=== PATIENT | female | born 1950 | race Asian ===

== ENCOUNTER → 2017-12-29 07:26 | Outpatient (CLI) | payer MEDICARE, OTHER, SELFPAY ==
--- NOTE | 2017-12-29 | DI.MG.S_ITS ---
BILATERAL DIGITAL SCREENING MAMMOGRAM 3D/2D WITH CAD: 12/29/2017 CLINICAL: Routine screening. Comparison is made to exams dated: 12/12/2016 mammogram, 12/10/2015 mammogram, and 12/11/2014 mammogram - [facility]. The tissue of both breasts is extremely dense, which lowers the sensitivity of mammography. Current study was also evaluated with a Computer Aided Detection (CAD) system. No significant masses, calcifications, or other findings are seen in either breast. There has been no significant interval change. IMPRESSION: NEGATIVE There is no mammographic evidence of malignancy. A 1 year screening mammogram is recommended. This exam was interpreted at Station ID: [id number]. NOTE: For mammograms, a report in lay terms will be sent to the patient. Approximately 15% of breast malignancies will not be visualized mammographically. In the management of a palpable breast mass, a negative mammogram must not discourage biopsy of a clinically suspicious lesion. Electronically Signed By: Isaiah ellis/lashae:12/29/2017 12:37:41 letter sent: Normal Exam ACR BI-RADS Category 1: Negative 3341F
== END ==
PROVIDERS: PCP Internal Medicine; Visit Provider Internal Medicine
DX: Z12.31 Encounter for screening mammogram for malignant neoplasm of breast (principal)
CPT/HCPCS: 77063; 77067

== ENCOUNTER → 2019-03-01 09:27 | Outpatient (CLI) | payer MEDICARE, OTHER, SELFPAY ==
--- NOTE | 2019-03-01 | DI.CT.S_ITS ---
PROCEDURE: CT CHEST WO CON INDICATIONS: ATELECTASIS OF RIGHT LUNG TECHNIQUE: Noncontrast 5 mm thick sections acquired from the pulmonary apices to the posterior costophrenic angles. 1 mm lung window, 5 mm thick coronal and sagittal and 7 mm axial MIP reformats were then acquired. For radiation dose reduction, the following was used: automated exposure control, adjustment of mA and/or kV according to patient size. COMPARISON: [facility], , CT THORAX W/O CONTRAST, 08/29/2018, 9:44. (Images only, no reported FINDINGS: Image quality: Excellent. Lungs and pleura: There is a mild area of poorly defined consolidation seen involving the anterior aspect of the right lower lobe inferiorly. This measures 5.2 x 1.5 cm in greatest axial dimensions. This is slightly increased in size compared to the outside 08/29/18 CT examination, when it measures 4.7 x 1.4 cm in greatest axial dimensions, measured in a similar fashion. Minimal streaky presumed atelectasis can be seen involving the anterior left lower lobe. The lungs otherwise appear clear. No pleural effusions or pneumothorax. Central and peripheral airways are patent and normal in caliber. Mediastinum: Heart size is normal. Coronary artery calcifications are seen. No pericardial effusion. No mediastinal adenopathy by size criteria. Thoracic aorta and central pulmonary arteries are normal in size. Esophagus is normal in caliber. No hiatal hernia. Bones and chest wall: No suspicious bony lesions. No vertebral body compression fractures. No axillary or supraclavicular adenopathy by size criteria. Thyroid gland demonstrates no significant noncontrast abnormality. Abdomen: Visualized upper abdominal solid organs and bowel loops appear normal in the absence of contrast. IMPRESSION: There is consolidation seen involving the right lower lobe anteriorly, which is slightly increased in size compared to the prior examination. While this may represent atelectasis or scarring, differential diagnosis for this abnormality also includes neoplasm. If clinically appropriate, please consider a dedicated PET/CT for further evaluation. Presumed mild atelectasis involving the left lower lobe anteriorly. Incidental note is made of: Coronary artery calcification Dictated by: Kavin Almazan M.D. on 03/01/2019 at 9:39 Approved by: Kavin Almazan M.D. on 03/01/2019 at 9:44
== END ==
PROVIDERS: Visit Provider Specialist
DX: J98.11 Atelectasis (principal); I25.10 Atherosclerotic heart disease of native coronary artery without angina pectoris
CPT/HCPCS: 71250

== ENCOUNTER → 2019-12-12 12:21 | Outpatient (CLI) | payer MEDICARE, OTHER, SELFPAY ==
--- NOTE | 2019-12-12 | DI.CT.S_ITS ---
PROCEDURE: CT CHEST WO CON INDICATIONS: Solitary pulmonary nodule TECHNIQUE: Noncontrast 5 mm thick sections acquired from the pulmonary apices to the posterior costophrenic angles. 1 mm lung window, 5 mm thick coronal and sagittal and 7 mm axial MIP reformats were then acquired. For radiation dose reduction, the following was used: automated exposure control, adjustment of mA and/or kV according to patient size. COMPARISON: [facility], RG, CT THORAX W/O CONTRAST, 08/29/2018, 9:44. [facility], CT, CT CHEST WO CON, 03/01/2019, 10:00. FINDINGS: Image quality: Excellent. Lungs and pleura: Redemonstrated focal consolidation with air bronchograms present within the right fissure and anterior right lower lobe, measuring 5.0 x 1.9 cm, previously 5.2 x 1.5 cm, stable to minimally increased. Airway thickening in keeping with nonspecific bronchitis and/or reactive airways disease. No pleural effusions or pneumothorax. Central and peripheral airways are patent and normal in caliber. Mediastinum: Heart size is normal. Coronary artery calcifications are present. No pericardial effusion. No mediastinal adenopathy by size criteria. Thoracic aorta and central pulmonary arteries are normal in size. Esophagus is normal in caliber. No hiatal hernia. Bones and chest wall: No suspicious bony lesions. No vertebral body compression fractures. No axillary or supraclavicular adenopathy by size criteria. Thyroid gland unremarkable. Abdomen: Visualized upper abdominal solid organs and bowel loops appear normal in the absence of contrast. IMPRESSION: Minimal to no interval change of redemonstrated anterior right lower lobe consolidation, probable atelectasis and scarring. If there is persistent clinical concern for indolent neoplasm, consider further evaluation with PET/CT, or continued surveillance with one-year interval chest CT Coronary artery disease Dictated by: Isaías Rodriguez M.D. on 12/12/2019 at 14:43 Approved by: Isaías Rodriguez M.D. on 12/12/2019 at 14:59
== END ==
PROVIDERS: PCP Internal Medicine; Referring Provider Internal Medicine; Visit Provider Internal Medicine
DX: R91.1 Solitary pulmonary nodule (principal); I25.10 Atherosclerotic heart disease of native coronary artery without angina pectoris
CPT/HCPCS: 71250

== ENCOUNTER → 2020-01-27 10:49 | Outpatient (CLI) | payer MEDICARE, OTHER, SELFPAY ==
--- NOTE | 2020-01-27 | DI.MG.S_ITS ---
BILATERAL DIGITAL SCREENING MAMMOGRAM 3D/2D WITH CAD: 01/27/2020 CLINICAL: Routine screening. Comparison is made to exams dated: 01/03/2019 mammogram - [facility], 12/29/2017 mammogram - [facility], 12/12/2016 mammogram, 12/10/2015 mammogram, 12/11/2014 mammogram, and 12/12/2013 mammogram - [facility]. The tissue of both breasts is extremely dense, which lowers the sensitivity of mammography. Current study was also evaluated with a Computer Aided Detection (CAD) system. No significant masses, calcifications, or other findings are seen in either breast. There has been no significant interval change. IMPRESSION: NEGATIVE There is no mammographic evidence of malignancy. A 1 year screening mammogram is recommended. This exam was interpreted at Station ID: [id number]. NOTE: For mammograms, a report in lay terms will be sent to the patient. Approximately 15% of breast malignancies will not be visualized mammographically. In the management of a palpable breast mass, a negative mammogram must not discourage biopsy of a clinically suspicious lesion. Electronically Signed By: Parviz jeffrey/lashae:01/27/2020 11:19:42 letter sent: Normal Exam ACR BI-RADS Category 1: Negative 3341F
== END ==
PROVIDERS: PCP Internal Medicine; Referring Provider Internal Medicine; Visit Provider Internal Medicine
DX: Z12.31 Encounter for screening mammogram for malignant neoplasm of breast (principal)
CPT/HCPCS: 77063; 77067

== ENCOUNTER → 2021-01-29 09:52 | Outpatient (CLI) | payer MEDICARE, OTHER, SELFPAY ==
--- NOTE | 2021-01-29 | DI.MG.S_ITS ---
BILATERAL DIGITAL SCREENING MAMMOGRAM 3D/2D WITH CAD: 01/29/2021 CLINICAL: Routine screening. Comparison is made to exams dated: 01/27/2020 mammogram - [facility], 01/03/2019 mammogram - [facility], and 12/29/2017 mammogram - [facility]. The tissue of both breasts is extremely dense, which lowers the sensitivity of mammography. Current study was also evaluated with a Computer Aided Detection (CAD) system. No significant masses, calcifications, or other findings are seen in either breast. There has been no significant interval change. IMPRESSION: NEGATIVE There is no mammographic evidence of malignancy. A 1 year screening mammogram is recommended. This exam was interpreted at Station ID: [id number]. NOTE: For mammograms, a report in lay terms will be sent to the patient. Approximately 15% of breast malignancies will not be visualized mammographically. In the management of a palpable breast mass, a negative mammogram must not discourage biopsy of a clinically suspicious lesion. Electronically Signed By: Bhavik carranza/lashae:01/29/2021 11:54:33 letter sent: Normal Exam ACR BI-RADS Category 1: Negative 3341F
== END ==
PROVIDERS: PCP Internal Medicine; Referring Provider Internal Medicine; Visit Provider Internal Medicine
DX: Z12.31 Encounter for screening mammogram for malignant neoplasm of breast (principal)
CPT/HCPCS: 77063; 77067

== ENCOUNTER 2022-11-23 11:00 | Day surgery (SDC) | payer MEDICARE, OTHER, SELFPAY ==
[2022-11-23 11:52] VITALS: BP 140/79; PULSE 71; RESP 16; TEMP 36.6; O2SAT 99; BMI 24.7
[2022-11-23] MEDS: LACTATED RINGERS 1,000 ML 42 ML IV (12:07)
--- NOTE | 2022-11-23 12:43 | P.HP_ITS ---
History of Present Illness History of Present Illness Chief complaint: Dx Colonoscopy Narrative: History of colon polyps [facility] Medical History (Updated 11/22/22 @ 14:14 by Junie Kaur RN) Diabetes Hypertension Hypothyroid Social History household members: spouse Smoking Status: Never smoker alcohol intake: never Meds Home Medications and Allergies Home Medications Medication Instructions Recorded Confirmed Type aspirin 81 mg tablet 81 mg PO DAILY 11/23/22 11/23/22 History atorvastatin 40 mg tablet 40 mg PO BEDTIME 11/23/22 11/23/22 History ezetimibe 10 mg tablet 10 mg PO DAILY 11/23/22 11/23/22 History ketoconazole 2 % topical cream 1 applic topical BID 11/23/22 11/23/22 History levothyroxine 88 mcg tablet 88 mcg PO DAILY 11/23/22 11/23/22 History lidocaine 5 % topical cream 1 applic topical BID PRN rash 11/23/22 11/23/22 History losartan 25 mg tablet 25 mg PO DAILY 11/23/22 11/23/22 History sitagliptin phosphate 50 1 tab PO BID 11/23/22 11/23/22 History mg-metformin 1,000 mg tablet (Cristoferumesophie) Allergies Allergy/AdvReac Type Severity Reaction Status Date / Time adhesive tape Allergy Verified 11/23/22 11:45 Exam Vital Signs (past 8 hours): - 11/23/22 11:52 Temperature 98 F Pulse Rate 71 Respiratory Rate 16 Blood Pressure 140/79 Pulse Oximetry 99 Oxygen Delivery Method Room Air Oxygen Delivery Method Room Air Narrative Exam Narrative: Oropharynx free of lesions Chest clear to auscultation percussion Cardiac exam reveals no S3 or murmur Assessment & Plan Assessment & Plan narrative: History of colon polyps need for follow-up colonoscopy. Risks, benefits, alternatives have been explained.
--- NOTE | 2022-11-23 12:44 | PM.OP.COLON ---
Operative Date/Time/Diagnoses Date of procedure: 11/23/22 Pre-op diagnosis: See indication and findings Procedure & Clinicians Study performed: Colonoscopy Indications: History of polyps Surgeon: Naina Pearl Procedure Notes Procedure in detail: After informed consent was obtained the patient was placed in left lateral decubitus position. The video colonoscope was placed in the rectum slowly advanced to the cecum. Preparation was good. On slow withdrawal mucosa was carefully examined. The scope was removed. The patient tolerated procedure well. Blood loss none Complications none Sedation mac Findings 1. Normal colonoscopy to cecum Patient should have follow-up colonoscopy in 7 years.
[2022-11-23 13:42] VITALS: BP 105/65; BP 113/64; PULSE 55; PULSE 59; RESP 13; RESP 20; TEMP 36.1; O2SAT 94; O2SAT 97
[2022-11-23 13:47] VITALS: BP 118/72; PULSE 59; RESP 16; O2SAT 98
[2022-11-23 13:54] VITALS: BP 92/69; PULSE 54; RESP 17; TEMP 36.7; O2SAT 98
[2022-11-23 13:57] VITALS: BP 136/63; PULSE 57; RESP 16; TEMP 36.8; O2SAT 99
== END 2022-11-23 13:45 | disposition home or self-care (01) ==
PROVIDERS: PCP Physician Assistant; Referring Provider Internal Medicine Gastroenterology; Visit Provider Internal Medicine Gastroenterology
PROC: 0DJD8ZZ Inspection of Lower Intestinal Tract, Via Natural or Artificial Opening Endoscopic (ICD-10-PCS; CPT 45378; principal; 2022-11-23 13:30)
DX: Z12.11 Encounter for screening for malignant neoplasm of colon (principal); Z86.010 Personal history of colon polyps
CPT/HCPCS: G0105; J2704

== ENCOUNTER → 2023-03-29 09:56 | Outpatient (CLI) | payer MEDICARE, OTHER, SELFPAY ==
--- NOTE | 2023-03-29 | DI.RAD.S_ITS ---
Bone Density Report Name: GRACIELA SILVER Age: 72 Sex: Female Ethnicity: Date of : 1950 Indication: postmenopausal; screening for osteoporosis; Referring Provider: BROCKWAY. CUNNINGHAM Study: Bone densitometry was performed. Exam Date: March 29, 2023 Accession number: [id number] Bone Density: Region BMD T-score Z-score Classification AP Spine(L1, L2, L3) 1.231 1.9 4.1 Normal Femoral Neck (Left) 0.759 -0.8 1.1 Normal Total Hip (Left) 0.976 0.3 1.9 Normal Femoral Neck (Right) 0.771 -0.7 1.2 Normal Total Hip (Right) 0.988 0.4 2.0 Normal Total Hip Mean 0.982 0.4 2.0 Normal World Health Organization criteria for BMD impression classify patients as: Normal (T-score at or above -1.0), Osteopenia (T-score between -1.0 and -2.5), or Osteoporosis (T-score at or below -2.5). 10-year Fracture Risk: FRAX not reported because: All T-scores for Spine Total, Hip Total, Femoral Neck at or above -1.0 Previous Exams: -- Region Exam Age BMD T-score BMD Change BMD Change Date g/cm2 vs Baseline vs Previous -- AP Spine (L1-L3) 03/29/2023 72 1.231 1.9 -0.028 (-2.2%)# -0.028 (-2.2%)# 09/27/2016 66 1.259 2.2 Total Hip(Left) 03/29/2023 72 0.976 0.3 -0.027 (-2.7%)# -0.027 (-2.7%)# 09/27/2016 66 1.004 0.5 Total Hip(Right) 03/29/2023 72 0.988 0.4 -0.001 (-0.1%)# -0.001 (-0.1%)# 09/27/2016 66 0.989 0.4 -- *Denotes significance at 95% confidence level, LSC for AP Spine = 0.022 g/cm2, LSC for Total Hip = 0.027 g/cm2 # Denotes dissimilar scan types or analysis methods Impression: The patient has normal bone mass. No significant bone loss was observed. Discussion: BONE DENSITY IS ABOVE THE MINIMUM DESIRABLE LEVEL AT ALL SKELETAL SITES TESTED. This patient's bone mineral density is above the minimum desirable level (T-score -1.0 or better) at all sites measured. The patient should follow a healthful lifestyle (good nutrition with adequate calcium and vitamin D, and appropriate weight-bearing exercise). Follow-Up: Consider repeating this study in 5 years or sooner if there is some new clinical indication. Reported by: SHANICE HAIRSTON M.D on 03/29/2023 10:22:00 AM.
== END ==
PROVIDERS: PCP Physician Assistant; Referring Provider Nurse Practitioner Family; Visit Provider Nurse Practitioner Family
DX: Z78.0 Asymptomatic menopausal state (principal)
CPT/HCPCS: 77080

== ENCOUNTER 2024-10-10 08:56 | Emergency (ER) | payer MEDICARE, OTHER, SELFPAY ==
[2024-10-10] VITALS (7 sets, daily range): BP systolic 113–171; BP diastolic 58–77; PULSE 66–73; RESP 13–25; TEMP 36.1; O2SAT 96–99; BMI 24.5
--- NOTE | 2024-10-10 09:06 | DI.RAD.S_ITS ---
PROCEDURE: XR CHEST 1V INDICATIONS: chest pain TECHNIQUE: One view of the chest was acquired. COMPARISON: None. FINDINGS AND IMPRESSION: Right lower lung consolidation, suspicious for atelectasis versus infectious airspace disease. Consider future imaging surveillance to assess for resolution. Normal heart size. No pleural effusions. Degenerative osseous changes. Age-indeterminate widening of the left AC interval. Dictated by: Aniceto Macdonald M.D. on 10/10/2024 at 9:43 Approved by: Aniceto Macdonald M.D. on 10/10/2024 at 9:44
--- NOTE | 2024-10-10 09:06 | EKG_ITS ---
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
--- NOTE | 2024-10-10 09:12 | ED.CHESTPAIN ---
HPI - Chest Pain General Chief Complaint: Chest Pain Stated Complaint: Feeling different , Chest bone pain Time Seen by Provider: 10/10/24 09:12 Source: patient Mode of arrival: Ambulatory Limitations: no limitations History of Present Illness HPI narrative: 74-year-old female with a past medical history of hyperlipidemia, hypothyroidism, hypertension, presenting from home for evaluation of left-sided chest pain ongoing intermittent for the past 1 week. Patient denies any radiation of the symptoms, denies anything making it better or worse. She denies any other symptoms such as headache visual disturbances shortness breath fever chills nausea vomiting abdominal pain or any other GI/ symptoms time. Related Data Home Medications Medication Instructions Recorded Confirmed aspirin 81 mg tablet 81 mg PO DAILY 11/23/22 11/23/22 atorvastatin 40 mg tablet 40 mg PO BEDTIME 11/23/22 11/23/22 ezetimibe 10 mg tablet 10 mg PO DAILY 11/23/22 11/23/22 ketoconazole 2 % topical cream 1 applic topical BID 11/23/22 11/23/22 levothyroxine 88 mcg tablet 88 mcg PO DAILY 11/23/22 11/23/22 lidocaine 5 % topical cream 1 applic topical BID PRN rash 11/23/22 11/23/22 losartan 25 mg tablet 25 mg PO DAILY 11/23/22 11/23/22 sitagliptin phosphate 50 1 tab PO BID 11/23/22 11/23/22 mg-metformin 1,000 mg tablet (Cristoferumet) Previous Rx's Medication Instructions Recorded doxycycline hyclate 100 mg capsule 100 mg PO BID 5 days #10 caps 10/10/24 Allergies Allergy/AdvReac Type Severity Reaction Status Date / Time adhesive tape Allergy Verified 11/23/22 11:45 Review of Systems Review of Systems Narrative: General: Denies fever, chills, weight loss HEENT: Denies headache, eye drainage, eye irritation, head trauma, sore throat, voice change Cardiovascular: Positive chest pain, denies palpitations, tachycardia Respiratory: Denies any shortness of breath, cough, wheeze, stridor GI/: Denies any abdominal pain, nausea, vomiting, diarrhea, bright red blood per rectum, melanotic stools, urinary frequency, urinary retention, dysuria, hematuria MSK: Denies any joint pain, muscle pains, swelling Skin: Denies any rashes, lesions, discoloration Neuro: Denies any headache, lightheadedness, dizziness, fainting, weakness Psych: Denies SI/HI Patient History Medical History (Updated 10/10/24 @ 10:24 by Jimmy Araujo DO) Hypothyroid Diabetes Hypertension Social History household members: spouse Smoking Status: Unknown if ever smoked alcohol intake: never Smoking Status: Unknown if ever smoked Exam Narrative Exam Narrative: General: Cooperative, well-developed, not in acute distress HEENT: Normocephalic, atraumatic, PERRLA, normal sclera, eyelids normal Neck: Active full range of motion, atraumatic Chest: Normal to inspection, negative crepitus, no overlying erythema ecchymosis Respiratory: Normal respiratory effort, not in acute respiratory distress, clear to auscultation bilaterally negative cough, wheeze, tachypnea, rhonchi, rales Cardiology: Regular rate rhythm negative gallop, murmur, rubs GI/: No tenderness to palpation, soft, non rigid, normal to inspection, exam deferred MSK: Full active range of motion in all 4 extremities, atraumatic, no tenderness to palpation of any bony prominences Skin: No rashes or lesions noted Neuro: Alert awake oriented x3, moves all 4 extremities spontaneously, cranial nerves intact, able to answer all questions appropriately follows commands appropriately Psych: Cooperative, negative suicidal or homicidal ideations Initial Vital Signs Initial Vital Signs: Vital Signs Temperature 97.0 F L 10/10/24 09:03 Pulse Rate 73 10/10/24 09:03 Respiratory Rate 13 10/10/24 09:03 Blood Pressure 171/77 H 10/10/24 09:03 Pulse Oximetry 98 10/10/24 09:03 Oxygen Delivery Method Room Air 10/10/24 09:03 Course Orders Ordered: ED Orders 10/10/24 09:06 XR chest 1V Stat EKG-12 Lead Stat 10/10/24 09:12 Complete Blood Count AUTO DIFF Stat Comprehensive Metabolic Panel Stat Lipase Stat Magnesium Stat NT-proBNP (BNP-Adult 18+) Stat PTT Partial Thromboplastin Felipe Stat Prothrombin Time INR Stat Troponin & CK Cardiac Panel Stat Discontinued Medications Aspirin (Aspirin 81 Mg Chew Tab) 324 mg PO NOW ONE Stop: 10/10/24 09:07 Last Admin: 10/10/24 09:15 Dose: 324 mg Documented By: SABRINA Vital Signs Vital signs: Vital Signs - 8 hr 04/17/25 09:03 10/10/24 09:15 10/10/24 09:25 Temperature 97.0 F L Pulse Rate 73 71 70 Respiratory Rate 13 16 25 H Blood Pressure 171/77 H Pulse Oximetry 98 99 98 Oxygen Delivery Method Room Air 10/10/24 09:25 10/10/24 09:30 10/10/24 09:30 Temperature Pulse Rate 66 Respiratory Rate 21 Blood Pressure 137/74 118/61 Pulse Oximetry 96 Oxygen Delivery Method MDM - Chest Pain Differential Diagnosis Differential diagnosis: Likely pneumothorax, atypical chest pain, st elevation myocardial infarction, costochondritis, chest pain and other (Pneumonia, ACS, electrolyte abnormality) Lab Data 10/10/24 09:12 10/10/24 09:12 Labs: Lab Results 10/10/24 Range/Units 09:12 WBC 6.0 (4.5-11.0) X10^3/uL RBC 4.72 (4.0-5.2) X10^6/uL Hgb 12.6 (12.0-16.0) g/dL Hct 38.1 (36-46) % MCV 80.7 (80-100) fL MCH 26.8 (26-34) PG MCHC 33.2 (30-36) % RDW 13.5 (11.6-14.8) % Plt Count 371 (150-400) X10^3/uL Neut % (Auto) 55.3 (50-75) % Lymph % (Auto) 34.4 (25-40) % Sargent % (Auto) 6.4 (3-14) % Eos % (Auto) 3.0 (2-4) % Baso % (Auto) 0.9 (0-2) % Neut # (Auto) 3300 (2875-8462) /uL Lymph # (Auto) 2100 (2550-8829) /uL Sargent # (Auto) 400 (0-900) /uL Eos # (Auto) 200 (0-450) /uL Baso # (Auto) 100 (0-100) /uL PT 10.5 (9.4-12.5) SECONDS INR 0.9 (0.9-1.3) APTT 36 (25.1-36.5) SECONDS Sodium 139 (137-145) mmol/L Potassium 3.6 (3.4-5.1) mmol/L Chloride 103 (98-107) mmol/L Carbon Dioxide 24 (22-32) mmol/L BUN 17 (7-17) mg/dL Creatinine 0.69 (0.52-1.04) mg/dL Estimated GFR > 60 (>60) mL/min BUN/Creatinine Ratio 24.6 H (6-22) Glucose 185 H (80-110) mg/dL Calcium 9.0 (8.4-10.2) mg/dL Magnesium 1.7 (1.6-2.3) mg/dL Total Bilirubin 0.8 (0.2-1.3) mg/dL AST 52 H (14-36) IU/L ALT 66 H (<35) IU/L Alkaline Phosphatase 61 (38-126) U/L Total Creatine Kinase 63 (30-135) U/L Troponin I < 0.012 (0.01-0.034) ng/mL NT-Pro-B Natriuret Pep < 20 (<125) pg/mL Total Protein 8.0 (6.3-8.2) g/dL Albumin 4.7 (3.5-5.0) g/dL Globulin 3.3 (1.7-4.1) g/dL Albumin/Globulin Ratio 1.4 (1.0-2.8) Lipase 231 (23-300) U/L Imaging Data Chest x-ray: Radiologist's Impression: [address] [address] XRay Report Signed Patient: Nani Mobley MR#: [id number] : 1950 Acct:[id number] Age/Sex: 74 / F Date of Service: 10/10/24 Loc: ED Accession Number: [id number] Procedure: XR chest 1V Ordering Provider: Jimmy Araujo D.O. PROCEDURE: XR CHEST 1V INDICATIONS: chest pain TECHNIQUE: One view of the chest was acquired. COMPARISON: None. FINDINGS AND IMPRESSION: Right lower lung consolidation, suspicious for atelectasis versus infectious airspace disease. Consider future imaging surveillance to assess for resolution. Normal heart size. No pleural effusions. Degenerative osseous changes. Age-indeterminate widening of the left AC interval. ECG Data Interpretation: EKG interpreted ED physician sinus 68 beats per minute, QTC [address] changes no STEMI MDM Narrative Medical decision making narrative: 74-year-old female history of hypertension hyperlipidemia hypothyroidism presenting from home for evaluation of left-sided chest pain ongoing intermittent for the past week. Patient denies any other symptoms, patient had lab work imaging EKG performed here in the emergency department, EKG nonischemic in nature, lab work without any leukocytosis, Chem panel unremarkable, troponin negative, chest x-ray showing possible right lower lung consolidation, patient stating that she is having more left-sided chest pain, however given read showing possible right lower lung consolidation, atelectasis versus infection we will treat for pneumonia. Patient with a heart score of 3, I instructed patient to follow up with primary care and Cardiology in outpatient setting, she did receive full-dose aspirin here in the emergency department. She understands and agrees with this plan, was given strict return precautions will be discharged home with outpatient follow up Discharge Plan Departure Patient Disposition: Home Clinical Impression: Chest pain, Pneumonia Instructions: DI for Pneumonia -- Adult, DI for Chest Pain Activity Restrictions/Additional Instructions: Please follow up with primary care and Cardiology Please read the discharge instructions sheet carefully and bring all papers to all doctor follow-up visits, as it may contain information that your doctor may want to see. Disease processes change and evolve, if your symptoms worsen or if you develop any new symptoms that are concerning to you please return for evaluation. Your evaluation today does not show any evidence of any life-threatening/serious illnesses requiring admission to the hospital or surgery. Please follow-up with your doctor for re-evaluation in approximately 1 day. Seek immediate medical attention for any worrisome symptoms. *If you do not have a primary care provider please contact the [facility] Resource line at [phone]. They will ask some questions about your medical history and help get you set up with a doctor in the community. Prescriptions: New doxycycline hyclate 100 mg capsule 100 mg PO BID 5 Days Qty: 10 0RF No Action atorvastatin 40 mg Tablet 40 mg PO BEDTIME lidocaine 5 % Cream 1 applic TOPICAL BID PRN (Reason: rash) levothyroxine 88 mcg Tablet 88 mcg PO DAILY losartan 25 mg Tablet 25 mg PO DAILY aspirin 81 mg Tablet 81 mg PO DAILY ketoconazole 2 % Cream 1 applic TOPICAL BID ezetimibe 10 mg Tablet 10 mg PO DAILY Janumet 50-1,000 mg Tablet 1 tab PO BID Referrals: Dalia Parada PA-C [Primary Care Provider] - Keira Bedoya MD [Physician] - (Chest pain) Stand Alone Forms: Patient Portal/API/Survey
[2024-10-10] MEDS: ASPIRIN 81 MG CHEW TAB 324 MG PO (09:15)
[2024-10-10 09:20] LABS: Add Manual Diff / Slide Review NO; Basophils Absolute Auto 100 /uL (0-100); Basophils Percent Auto 0.9 % (0-2); Eosinophils Absolute Auto 200 /uL (0-450); Hematocrit 38.1 % (36-46); Hemoglobin 12.6 g/dL (12.0-16.0); Lymphocytes Absolute Auto 2100 /uL (1100-4500); Lymphocytes Percent Auto 34.4 % (25-40); Mean Corpuscular HGB Conc 33.2 % (30-36); Mean Corpuscular Hemoglobin 26.8 PG (26-34); Mean Corpuscular Volume 80.7 fL (80-100); Monocytes Absolute Auto 400 /uL (0-900); Monocytes Percent Auto 6.4 % (3-14); Neutrophils Absolute Auto 3300 /uL (1500-7000); Neutrophils Percent Auto 55.3 % (50-75); Platelet Count 371 X10^3/uL (150-400); Red Blood Cell Count 4.72 X10^6/uL (4.0-5.2); Red Cell Distribution Width 13.5 % (11.6-14.8)
[2024-10-10 09:25] LABS: INR 0.9 (0.9-1.3); Prothrombin Time 10.5 SECONDS (9.4-12.5)
[2024-10-10 09:27] LABS: PTT Partial Thromboplastin Tim 36 SECONDS (25.1-36.5)
[2024-10-10 09:41] LABS: NT-proBNP (BNP-Adult 18+) < 20 pg/mL (<125); Troponin I < 0.012 ng/mL (0.01-0.034)
[2024-10-10 09:43] LABS: Alanine Aminotransferase 66 IU/L (<35); Albumin 4.7 g/dL (3.5-5.0); Albumin Globulin Ratio 1.4 (1.0-2.8); Alkaline Phosphatase 61 U/L (38-126); Aspartate Aminotransferase 52 IU/L (14-36); BUN Creatinine Ratio 24.6 (6-22); Bilirubin Total 0.8 mg/dL (0.2-1.3); Blood Urea Nitrogen 17 mg/dL (7-17); Carbon Dioxide 24 mmol/L (22-32); Chloride 103 mmol/L (98-107); Estimated Glomerular Filt Rate > 60 mL/min (>60); Globulin 3.3 g/dL (1.7-4.1); Glucose 185 mg/dL (80-110); Lipase 231 U/L (23-300); Potassium 3.6 mmol/L (3.4-5.1); Sodium 139 mmol/L (137-145)
[2024-10-10 09:51] LABS: Creatine Kinase 63 U/L (30-135); HEMOLYSIS 25 (0-50); Magnesium 1.7 mg/dL (1.6-2.3)
[2024-10-10] MEDS: DOXYCYCLINE HYCLATE 100 MG TABLET PO (10:30)
== END 2024-10-10 10:37 | disposition home or self-care (01) ==
PROVIDERS: Emergency Provider Student in an Organized Health Care Education/Training Program; PCP Physician Assistant
DX: J18.9 Pneumonia, unspecified organism (principal); R07.9 Chest pain, unspecified
CPT/HCPCS: 36415; 71045; 80053; 82550; 83690; 83735; 83880; 84484; 85025; 85610; 85730; 93005; 93010; 99284